=== PATIENT | female | born 1965 | race Caucasian/White ===

== ENCOUNTER → 2019-03-22 | Day surgery (SDC) | payer OTHER ==
--- NOTE | 2019-03-23 16:27 | PATH ---
Surgical Pathology Report Patient Name: BENEDICT MILLER [facility]. Rec. #: [id number] /Age/Gender: 1965 (Age: 53) / F Account: [id number] Location: [facility] Taken: 03/22/2019 Received: 03/22/2019 Reported: 03/23/2019 Physicians: Robert Olivera M.D. Specimen(s) Received A: RIGHT BREAST SPECIMEN - WITH CALCIFICATIONS B: RIGHT BREAST SPECIMEN - WITHOUT CALCIFICATIONS Clinical History Nonpalpable lesion Mammographic findings: Microcalcification, suspicious Final Diagnosis A. BREAST, RIGHT, WITH CALCIFICATIONS, STEREOTACTIC BIOPSY: DUCTAL CARCINOMA IN SITU, CRIBRIFORM AND SOLID TYPE, INTERMEDIATE NUCLEAR GRADE, WITH FOCAL NECROSIS AND ASSOCIATED CALCIFICATIONS, INVOLVING SCLEROSING ADENOSIS. Note: Myoepithelial immunohistochemical markers (SMM-HC and p63, performed at [facility]) demonstrate the presence of myoepithelial cells in the foci of DCIS involving sclerosing adenosis. This finding supports the diagnosis. Results of ER and DC studies performed at [facility] are as follows: ER (clone [id number] mouse monoclonal antibody by [employer]ica):100 % nuclear staining with strong intensity (positive). DC (clone16 mouse monoclonal antibody by [employer]ica) :> 90% nuclear staining with moderate to strong intensity (positive). B. BREAST, RIGHT, WITHOUT CALCIFICATIONS, STEREOTACTIC BIOPSY: BENIGN BREAST TISSUE. Positive and negative controls (internal if applicable) show appropriate results. Formalin fixation and cold ischemic times are within current ASCO/CAP recommendations for ER, DC and Her2 testing. Electronically Signed Alem Jaramillo M.D. Gross Description A. Received in formalin labeled "right breast specimen with calcifications," is a 2.5 x 2.0 x 0.3 cm aggregate of resendiz-yellow, irregular to cylindrical portions of fibroadipose tissue. The formalin is filtered and the specimen is entirely submitted in one cassette. B. Received in formalin labeled "right breast specimen without calcifications," is a 2.0 x 1.7 x 0.3 cm aggregate of resendiz-yellow, irregular to cylindrical portions of fibroadipose tissue. The formalin is filtered and the specimen is entirely submitted in one cassette. Time to formalin fixation: 7 minutes Total formalin fixation time: Approximately 7 hours. /03/22/2019 saudi03/22/2019
== END | disposition home or self-care (01) ==
LOC: FMAMMOTONE 07:36 → FRADUS-SUR 07:36 → EDSTATUS 08:15
PROVIDERS: ATTEND Surgery Surgical Oncology
PROC: 0HBT3ZX Excision of Right Breast, Percutaneous Approach, Diagnostic (ICD-10-PCS; principal; 2019-03-22)
DX: D05.91 Unspecified type of carcinoma in situ of right breast (principal); N60.21 Fibroadenosis of right breast; N64.89 Other specified disorders of breast; R92.1 Mammographic calcification found on diagnostic imaging of breast
CPT/HCPCS: 19081; 76642-TC-RT; 87899; 88305-TC; 88341-TC; 88342-TC; A4648

== ENCOUNTER → 2019-03-28 | Day surgery (SDC) | payer OTHER ==
--- NOTE | 2019-03-30 11:50 | PATH ---
Surgical Pathology Report Patient Name: BENEDICT MILLER [facility]. Rec. #: [id number] /Age/Gender: 1965 (Age: 53) / F Account: [id number] Location: [facility] RADOLOGY MR Taken: 03/28/2019 Received: 03/28/2019 Reported: 03/30/2019 Physicians: Arely Carreno M.D. Jayro Mike M.D. Specimen(s) Received A: RIGHT BREAST LESION #1 10:00 CORE BX B: RIGHT BREAST LESION # 2 10:00 CORE BX Clinical History Recently diagnosed DCIS right breast, two enhancing foci 10:00 right breast Final Diagnosis A. BREAST, RIGHT, 10:00, LESION, #1, CORE BIOPSY: BENIGN BREAST TISSUE SHOWING STROMAL FIBROSIS AND PATCHY FAT NECROSIS WITH HISTIOCYTIC REACTION. (SEE NOTE) B. BREAST, RIGHT, 10:00, LESION #2, CORE BIOPSY: FOCAL ATYPICAL DUCTAL HYPERPLASIA (ADH). STROMAL FIBROSIS AND PATCHY FAT NECROSIS WITH HISTIOCYTIC REACTION. (SEE NOTE). Note: Cytokeratin (AE 1/3) immunostains (performed at [facility] on blocks A1 & B1 were used in the evaluation of this case). Prior right breast stereotactic biopsy ([id number]; 03/22/19) is noted. Electronically Signed Alem Jaramillo M.D. Gross Description A. Received in formalin labeled "right breast 10:00 lesion 1," is a 3.0 x 2.8 x 0.2 cm aggregate of resendiz-yellow, irregular to cylindrical portions of fibroadipose tissue. The formalin is filtered and the specimen is entirely submitted in 2 cassettes. B. Received in formalin labeled "right qoclhe91:00 lesion 2," is a 2.4 x 2.4 x 0.3 cm aggregate of multiple resendiz-yellow, irregular to cylindrical portions of fibroadipose tissue admixed with blood clot. The formalin is filtered and the specimen is entirely submitted in one cassette. Time to formalin fixation: 2 minutes Total formalin fixation time: Approximately 6 hours. 03/28/2019 saudi03/28/2019
== END | disposition home or self-care (01) ==
LOC: FRADUS-SUR 08:50
PROVIDERS: ATTEND Surgery Surgical Oncology
PROC: 0HBT3ZX Excision of Right Breast, Percutaneous Approach, Diagnostic (ICD-10-PCS; principal; 2019-03-28)
DX: N60.31 Fibrosclerosis of right breast (principal); N60.91 Unspecified benign mammary dysplasia of right breast; N64.1 Fat necrosis of breast; N64.89 Other specified disorders of breast; N63.11 Unspecified lump in the right breast, upper outer quadrant
CPT/HCPCS: 19085; 19086; 77065-TC; 88305-TC; 88342-TC; A4648; A9579; C1887